=== PATIENT | female | born 1970 | race Caucasian/White ===

== ENCOUNTER 2018-03-14 08:34 | Outpatient (CLI) | payer OTHER ==
--- NOTE | 2018-03-14 10:49 | MRI ---
MRI LUMBAR SPINE WITH AND WITHOUT IV CONTRAST: Date: 03-14-18 Provided Clinical History: Herniated nucleus pulposus. FINDINGS: Comparison is made with a study dated 11-12-14. Five lumbar vertebral bodies are assumed. Lumbar alignment appears normal. Vertebral body heights faraz ear preserved. No focal concerning regional marrow signal abnormality is evident. Disc space narrowin g and endplate degenerative changes are seen at L4-5. Conus medullaris is normal in signal and termin ates at an appropriate level. The visualized extraspinal soft tissues demonstrate no significant abno rmality. L2-3: There is no significant central canal or foraminal narrowing apparent. L2-3: There is no significant central canal or foraminal narrowing apparent. L3-4: There is mild bilateral facet arthritis without significant central canal or foraminal narrowin g apparent. L4-5: There is a broad based disc bulge which is somewhat eccentric in the right foraminal region. Th ere is bilateral facet arthritis. There is mild right foraminal narrowing. No significant central can al stenosis apparent. L5-S1: There is mild bilateral facet arthritis. There is a broad based disc bulge. There is no signif icant central canal stenosis apparent. No significant foraminal narrowing apparent. There is no abnormal contrast enhancement identified. IMPRESSION: Lumbar disc and facet degenerative changes as described above. POS: ENRIQUE
== END 2018-03-14 08:35 | disposition home or self-care (01) ==
LOC: MRI 08:34
PROVIDERS: ATTEND Family Medicine
DX: M51.26 Other intervertebral disc displacement, lumbar region (principal); M51.36 Other intervertebral disc degeneration, lumbar region; M47.896 Other spondylosis, lumbar region
CPT/HCPCS: 72158

== ENCOUNTER 2018-06-21 07:59 | Outpatient (CLI) | payer OTHER | END 2018-06-21 08:00 | disposition home or self-care (01) | LOC: BICMAMMO 07:59 | PROVIDERS: ATTEND Obstetrics & Gynecology | DX: Z12.31 Encounter for screening mammogram for malignant neoplasm of breast (principal); N64.89 Other specified disorders of breast | CPT/HCPCS: 77063; 77067 ==

== ENCOUNTER 2018-07-10 08:07 | Outpatient (CLI) | payer OTHER ==
--- NOTE | 2018-07-10 09:08 | ULT ---
LIMITED LEFT BREAST ULTRASOUND: DATE: 07/10/2018. PROVIDED CLINICAL HISTORY: Abnormal mammogram. FINDINGS: Limited sonographic interrogation of the left breast was performed in the region of mammographic conc nellie. There is a circumscribed focus of diminished echogenicity with enhanced through transmission an d multiple internal septations suggesting a cluster of cysts. No additional sonographic abnormalitie s are present in the region of mammographic concern. IMPRESSION: BI-RADS category 3 - probably benign findings. Six-month followup ultrasound is recommended. POS: OFF
== END 2018-07-10 08:08 | disposition home or self-care (01) ==
LOC: BICMAMMO 08:07
PROVIDERS: ATTEND Obstetrics & Gynecology
DX: R92.2 Inconclusive mammogram (principal); N63.24 Unspecified lump in the left breast, lower inner quadrant
CPT/HCPCS: G0279